=== PATIENT | male | born 1970 | race Caucasian/White ===

== ENCOUNTER 2020-06-25 09:38 | Inpatient (IN) | payer OTHER ==
[~2020-06-25] VITALS: Ht 175.3 cm; Wt 80.3 kg
[2020-06-25 09:48] VITALS: BP 126/78
[2020-06-25 10:37] LABS: ABSOLUTE NEUTROPHILS 8.7 thou/uL (1.4-8.2); BASOPHILS 0.3 % (0.0-2.0); EOSINOPHILS 1.7 % (0.0-3.0); HEMATOCRIT 48.8 % (42.0-52.0); LYMPHOCYTES 1.7 % (24.0-44.0); MCHC 34.8 g/dL (28.0-37.0); MCV 92.1 fL (80.0-100.0); MONOCYTES 8.6 % (1.0-8.0); PLATELET COUNT 201 thou/uL (150-400); POLYS 87.7 % (36.0-66.0); RDW 14.1 % (10.5-14.5); WBC 9.9 thou/uL (4.0-11.0)
[2020-06-25 10:45] LABS: CALCIUM 8.7 mg/dL (8.5-10.1); CREATININE 1.2 mg/dL (0.7-1.3); POTASSIUM 3.5 mmol/L (3.5-5.1)
[2020-06-25 12:17] VITALS: BP 117/68
[2020-06-25 12:24] VITALS: BP 137/88
[2020-06-25 13:15] VITALS: BP 130/81
--- NOTE | 2020-06-25 16:19 | NUR ---
ASSESSMENT: CM REVIEWED CHART AND SPOKE WITH PATIENT. PT IS ALERT AND ORIENTED X4. PT REPORTS THAT HE LIVES AT HOME WITH HIS . PT REPORTS BEING FULLY INDEPENDENT WITH ADLS AND AMBULATION. PT WORKS EMERGENCY MEDICAL TECHNICIAN BASIC. PT WAS ADMITTED FOR POSSIBLE FOREIGN BODY IN HIS FINGER, ORTHO SURGEON CONSULT WAS PLACED. PT REPORTS HE HAS NO HX OF HH OR SNF. CM WILL CONTINUE TO FOLLOW TO ASSIST NEEDED AND AWAITING FURTHER PLANS.
--- NOTE | 2020-06-25 19:42 | NUR ---
Pt transferred from ED approx 1300. Admission completed. Pain under control. On IV antibiotics. NPO after midnight. RA. Up ad jumana. Denies fevers and chills. Pt will have surgery tomorrow. Report given to zaida MURDOCK.
[2020-06-25 20:45] VITALS: BP 130/76
--- NOTE | 2020-06-26 03:01 | NUR ---
PT C/O PAIN ON HIS FINGER,MANAGED WITH MED.PT UP ADLIB IN HIS ROOM WITH A STEADY GAIT.PT CONT ON HIS IVF AND IV ABX ORDERED.PT LOOKING FORWARD TO GOING HOME LATER IN THE DAY AFTER SX.PT SLEEPING ON HIS BED AT THIS TIME.CALL LIGHT WITHIN REACH.
[2020-06-26 04:40] LABS: CALCIUM 8.4 mg/dL (8.5-10.1); CREATININE 1.1 mg/dL (0.7-1.3); POTASSIUM 3.5 mmol/L (3.5-5.1)
[2020-06-26 04:42] LABS: EOSINOPHILS 3.2 % (0.0-3.0); HEMOGLOBIN 16.7 gm/dL (14.0-18.0); MCHC 33.9 g/dL (28.0-37.0)
[2020-06-26 04:43] LABS: ABSOLUTE NEUTROPHILS 6.8 thou/uL (1.4-8.2); BASOPHILS 0.2 % (0.0-2.0); HEMATOCRIT 49.3 % (42.0-52.0); MCH 31.6 pg (26.0-34.0); MCV 93.2 fL (80.0-100.0); MONOCYTES 8.8 % (1.0-8.0); PLATELET COUNT 173 thou/uL (150-400); POLYS 85.8 % (36.0-66.0); RBC 5.29 mil/uL (4.50-6.00)
[2020-06-26 08:00] VITALS: BP 121/69
--- NOTE | 2020-06-26 08:15 | NUR ---
Assumed pt care at 7am. Pt in bed r esting and thinking about bead picker time for surgery.Assessment completed .vss.Pt reported having campos and credit cards on him.Rn told pt that inventory will be done and send to security for safety. Security called and $244 campos and credit cards given.At 0815,pt left for surgery per wc accompanied by SURGICAL SPECIALIST.Will continue to monitor.
[2020-06-26] MEDS ORDERED: HYDROCODON-ACE1 EAC7 PO (09:08)
[2020-06-26] MEDS ORDERED: BACTRIM DS TAB1 EAC1 PO (09:09)
[2020-06-26 10:15] VITALS: BP 113/74
[2020-06-26 11:15] VITALS: BP 108/69
[2020-06-26 13:29] VITALS: BP 108/69
--- NOTE | 2020-06-28 10:11 | O ---
[facility] [place] [address] OPERATIVE REPORT Name: ALDEN DEE Room #: 442-P [facility] IN M.R.#: [id number] Admission: 06/25/20 Attend Phys: Alirio Naylor MD Discharge: 06/26/20 Date of : 66 Report #: [id number] THIS REPORT FOR: cc: Chad Lucas MD, Stany A. MD Abraham,Kilo Cavazos MD ~ DATE OF SERVICE: 06/26/2020 PREOPERATIVE DIAGNOSIS: Left middle finger abscess. POSTOPERATIVE DIAGNOSIS: Left middle finger abscess. PROCEDURE: Incision and drainage, left middle finger abscess. SURGEON: Kilo Pelaez MD. ANESTHESIA: LMA. COMPLICATIONS: None. SPECIMENS: Intraoperative cultures were taken and sent. CONDITION UPON LEAVING THE OPERATING ROOM: Stable. INDICATIONS FOR PROCEDURE: The patient is a 49-year-old gentleman who had a splinter in his middle finger over the flexion crease of the PIP joint. This has gone on to create an abscess and came in to the Emergency Room yesterday with drainage from this. He was in need of operative incision and drainage of the abscess. DESCRIPTION OF PROCEDURE: Risks, benefits, alternatives, complications were discussed in detail with the patient including but not limited to risk of anesthesia, risk of damage to nerves, arteries, blood vessels, risk for continued infection, need for reoperation. Informed consent was obtained from the patient. The left hand was appropriately marked in the preoperative holding area. IV clindamycin had already been given for preoperative antibiotics. He was brought to the operating room and placed in supine position on operating room table. LMA anesthesia was induced without complication. Left hand was prepped and draped in normal sterile fashion. Timeout was performed properly identifying the patient and procedure as well as the instrumentation. All in the operating room were in agreement. A Tourni-Cot was placed in the base of the middle finger and an oblique incision was performed over the PIP joint flexion crease at the level of the abscess. This was then opened and drained. Cultures were taken. Devitalized tissue was debrided. This was thoroughly irrigated with normal saline and dressed with Xeroform, Webril, and Coban. The [address] [address] OPERATIVE REPORT Name: ALDEN DEE [facility] [place] Room #: 442-P [facility] IN .R.#: [id number] Admission: 06/25/20 Attend Phys: Alirio Naylor MD Discharge: 06/26/20 Date of : 66 Report #: [id number] patient tolerated this procedure well and went to recovery room under care of anesthesia postoperatively. <ELECTRONICALLY SIGNED> By: Kilo Pelaez MD 06/28/20 [id number] Kilo Pelaez MD /nt
== END 2020-06-26 14:58 | disposition home or self-care (01) | DRG 580 ==
LOC: ER 09:38 → EROBS 11:46 → 4S 12:25
PROVIDERS: Emergency Medicine; Nurse Practitioner; ADMIT Hospitalist; ATTEND Hospitalist
PROC: 0J9K0ZZ Drainage of Left Hand Subcutaneous Tissue and Fascia, Open Approach (ICD-10-PCS; principal; 2020-06-26)
DX: S60.453A Superficial foreign body of left middle finger, initial encounter (principal); L02.512 Cutaneous abscess of left hand; L03.012 Cellulitis of left finger; F17.210 Nicotine dependence, cigarettes, uncomplicated; W45.8XXA Other foreign body or object entering through skin, initial encounter; Z20.822 Contact with and (suspected) exposure to COVID-19; Y93.89 Activity, other specified; Y92.89 Other specified places as the place of occurrence of the external cause; Z72.89 Other problems related to lifestyle; Y99.8 Other external cause status; Z23 Encounter for immunization
CPT/HCPCS: 10102; 50386; 56527; 57091